=== PATIENT | female | born 1985 | race Two or more races ===

== ENCOUNTER 2016-10-12 06:08 | Emergency (ER) | payer MEDICAID, OTHER ==
[~2016-10-12] VITALS: Ht 162.6 cm; Wt 117.9 kg
[2016-10-12] MEDS ORDERED: NKM (06:17)
[2016-10-12] MEDS ORDERED: Cephalexin 500mg cap ORAL ONE (06:30)
[2016-10-12] MEDS ORDERED: KEFLEX500 MG ORAL (06:31)
--- NOTE | 2016-10-12 06:31 | Emergency Room Report ---
History of Present Illness General Chief Complaint: Female Urogenital Problems Source: Patient Present Illness HPI Is a 31-year-old female who is 8 para 4, approximately 7 weeks . She presents with chief complaint of dysuria, frequency and urgency. No hematuria. No vaginal bleeding. Onset for a week now. Also has some mild left lower back pain. She made an appointment with her but it won't be until few days now. Denies any other complaint. Allergies: Coded Allergies: No Known Allergies (Verified , 10/12/16) Patient History Past Medical History: see triage record, old chart reviewed Past Surgical History: none Pertinent Family History: none Social History: Reports: smoking Last Menstrual Period: Aug 20 Now: Yes : 8 Para: 4 Immunizations: other Reviewed Nursing Documentation: PMH: Agreed, PSxH: Agreed Nursing Documentation-PMH Past Medical History: No History, Except For Hx Gastrointestinal Problems: Yes - Pancreatitis, gallstones Review of Systems Eye: Denies: blurred vision, eye pain ENT: Denies: ear pain, nose congestion, throat swelling Respiratory: Denies: cough, shortness of breath Cardiovascular: Denies: chest pain, palpitations Gastrointestinal: Denies: abdominal pain, diarrhea, nausea, vomiting Genitourinary: Reports: dysuria, frequency, urgency, Denies: vag bleed/dc Musculoskeletal: Denies: back pain, joint pain Skin: Denies: rash Neurological: Denies: headache, numbness Endocrine: Denies: increased thirst, increased urine Hematologic/Lymphatic: Denies: easy bruising All Other Systems: negative except mentioned in HPI Physical Exam Vital Signs Date Time Temp Pulse Resp B/P Pulse Ox O2 Delivery O2 Flow Rate FiO2 10/12/16 06:12 97.9 83 16 133/81 98 Room Air vitals normal Sp02 EP Interpretation: reviewed, normal General Appearance: well appearing, no apparent distress, alert Head: normocephalic, atraumatic Eyes: bilateral eye EOMI, bilateral eye PERRL ENT: hearing grossly normal, normal pharynx Neck: full range of motion, supple, no meningismus Respiratory: chest non-tender, lungs clear, normal breath sounds Cardiovascular #1: regular rate, rhythm, no murmur Gastrointestinal: normal bowel sounds, non tender, no mass, no organomegaly, no bruit, non-distended Musculoskeletal: back normal, gait/station normal, normal range of motion Psychiatric: mood/affect normal Skin: warm/dry Medical Decision Making Diagnostic Impression: Primary Impression: UTI (urinary tract infection) Qualified Codes: N30.00 - Acute cystitis without hematuria Additional Impression: test positive for normal first in first trimester ER Course Patient with UTI and . She has no pain no vaginal bleeding. I see no need to do an emergency ultrasound. We'll discharge home with antibiotics. Last Vital Signs Date Time Temp Pulse Resp B/P Pulse Ox O2 Delivery O2 Flow Rate FiO2 10/12/16 06:12 97.9 83 16 133/81 98 Room Air Status: improved Disposition: HOME, SELF-CARE Condition: Stable Scripts Cephalexin* (KEFLEX*) 500 Mg Capsule 500 MG ORAL TID, #21 CAP 0 Refills Prov: LIBBY LOVETT M.D. 10/12/16 Patient Instructions: Urinary Tract Infection Additional Instructions: Followup with your Dr. in 2-3 days. Return if symptom worsen. LIBBY LOVETT M.D. Oct 12, 2016 06:31
[2016-10-12 06:37] VITALS: BP 133/81
[2016-10-12 07:03] LABS: APPEARANCE,URINE CLEAR; KETONES,URINE NEGATIVE (NEGATIVE); LEUKOCYTE ESTERASE ,URINE 3+ (NEGATIVE); NITRITE,URINE POSITIVE (NEGATIVE); PH,URINE 6 (4.5-8.0); PROTEIN,URINE 2+ (NEGATIVE); UROBILINOGEN,URINE NORMAL MG/DL (0.0-1.0)
[2016-10-12 08:17] LABS: BACTERIA,URINE MANY /HPF; SQUAMOUS EPITHELIAL CELL,UR MODERATE /LPF (NONE/OCC); WBC,URINE 60-80 /HPF (0 - 2)
== END 2016-10-12 06:38 | disposition home or self-care (01) ==
LOC: EMR 06:25
DX: O23.41 Unspecified infection of urinary tract in pregnancy, first trimester (principal); Z3A.01 Less than 8 weeks gestation of pregnancy
CPT/HCPCS: 81003; 81025; 87086; 87181; 99283

== ENCOUNTER 2016-12-08 01:40 | Emergency (ER) | payer MEDICAID ==
[~2016-12-08] VITALS: Ht 162.6 cm; Wt 119.3 kg
[~2016-12-08 01:40] MED LIST: KEFLEX500 MG ORAL; NKM
[2016-12-08] MEDS ORDERED: PRENATA CHEWAB1 EACH PO (01:48)
[2016-12-08 02:03] VITALS: BP 127/87
[2016-12-08] MEDS ORDERED: Morphine Sulfate 4mg/ml Inj IVP ONE (02:45)
[2016-12-08 02:50] LABS: APPEARANCE,URINE CLEAR; KETONES,URINE 3+ (NEGATIVE); LEUKOCYTE ESTERASE ,URINE 2+ (NEGATIVE); NITRITE,URINE NEGATIVE (NEGATIVE); PH,URINE 5 (4.5-8.0); PROTEIN,URINE 2+ (NEGATIVE); UROBILINOGEN,URINE NORMAL MG/DL (0.0-1.0)
--- NOTE | 2016-12-08 02:51 | Emergency Room Report ---
History of Present Illness General Chief Complaint: Abdominal Pain Source: Patient Present Illness HPI Is a 31-year-old female who is 9, para 4, A 4, 20 weeks . She also has a history of gallstone. Never any problem with gallstone attack with prior . She only get frequent attack. She presents with chief complaint of epigastric pain going to her back. Onset for last few hours. Has nausea vomiting. Denies any dysuria frequency. Denies any diarrhea. Pain is 8 /10. Does not have any medicine for this. She had an ultrasound in [facility] for her ready. She scheduled for OB followup next week. No vaginal bleeding. Allergies: Coded Allergies: No Known Allergies (Verified , 12/08/16) Patient History Past Medical History: see triage record, old chart reviewed Past Surgical History: none Pertinent Family History: none Social History: Denies: smoking Last Menstrual Period: 5 months ago Now: Yes - 5 months : 9 Para: 4 Immunizations: other Reviewed Nursing Documentation: PMH: Agreed, PSxH: Agreed Nursing Documentation-PMH Past Medical History: No History, Except For Hx Gastrointestinal Problems: Yes - Pancreatitis, gallstones Review of Systems Eye: Denies: blurred vision, eye pain ENT: Denies: ear pain, nose congestion, throat swelling Respiratory: Denies: cough, shortness of breath Cardiovascular: Denies: chest pain, palpitations Gastrointestinal: Reports: abdominal pain, nausea, vomiting, Denies: diarrhea Musculoskeletal: Denies: back pain, joint pain Skin: Denies: rash Neurological: Denies: headache, numbness Endocrine: Denies: increased thirst, increased urine Hematologic/Lymphatic: Denies: easy bruising All Other Systems: negative except mentioned in HPI Physical Exam Vital Signs Date Time Temp Pulse Resp B/P Pulse Ox O2 Delivery O2 Flow Rate FiO2 12/08/16 01:42 98.1 116 16 138/95 97 Room Air vital with tachycardia Sp02 EP Interpretation: reviewed, normal General Appearance: well appearing, no apparent distress, alert, obese Head: normocephalic, atraumatic Eyes: bilateral eye EOMI, bilateral eye PERRL ENT: hearing grossly normal, normal pharynx Neck: full range of motion, supple, no meningismus Respiratory: chest non-tender, lungs clear, normal breath sounds Cardiovascular #1: regular rate, rhythm, no murmur Gastrointestinal: normal bowel sounds, no mass, no organomegaly, no bruit, non- distended, tenderness - Epigastric pain. gravid Musculoskeletal: back normal, gait/station normal, normal range of motion Psychiatric: mood/affect normal Skin: warm/dry Medical Decision Making Diagnostic Impression: Primary Impression: Abdominal pain Qualified Codes: R10.13 - Epigastric pain Additional Impressions: Cholelithiasis Qualified Codes: K80.20 - Calculus of gallbladder without cholecystitis without obstruction UTI (urinary tract infection) Qualified Codes: N30.00 - Acute cystitis without hematuria ER Course Patient presents with abdominal pain. This may be secondary UTI and biliary colic. I did a bedside ultrasound and she's negative for Ingram sign. She does have a large gallstone but no evidence of obstruction. Gallbladder was normal. I also see a live IUP with good movement. Heart rate of 130s. Pain is well-controlled now. We'll discharge home. Last Vital Signs Date Time Temp Pulse Resp B/P Pulse Ox O2 Delivery O2 Flow Rate FiO2 12/08/16 02:03 109 21 127/87 97 Room Air 12/08/16 01:42 98.1 Status: improved Disposition: HOME, SELF-CARE Condition: Stable Scripts Ondansetron (Zofran) 4 Mg Tablet 4 MG ORAL Q6H Y for Nausea & Vomiting, #20 TAB 0 Refills Prov: LIBBY LOVETT M.D. 12/08/16 Nitrofurantoin Monohyd/M-Cryst (Nitrofurantoin [place]-Mcr 100 mg) 100 Mg Capsule 100 MG ORAL Q12H, #14 CAP Prov: LIBBY LOVETT M.D. 12/08/16 Hydrocodone/Acetaminophen 5-325* (HYDROCODONE/ACETAMINOPHEN 5-325*) 1 Each Tablet 1 TAB ORAL Q6H Y for For Pain, #15 TAB 0 Refills Prov: LIBBY LOVETT M.D. 12/08/16 Referrals: NOT CHOSEN [facility]/,REFERRING (PCP) Additional Instructions: Followup with your DrRosa Elena in 2-3 days. Keep the appointment to ADMINISTRATIVE SUPPORT COORDINATOR. Return if symptom worsen. LIBBY LOVETT M.D. December 08, 2016 02:51
[2016-12-08 02:56] LABS: BASOPHILS % (AUTO) 0.1 % (0.0-2.0); EOSINOPHILS % (AUTO) 0.2 % (0.0-3.0); LYMPHOCYTES % (AUTO) 11.5 % (20.0-45.0); MEAN CORPUSCULAR HEMOGLOBIN 30.1 PG (27.0-31.0); MEAN CORPUSCULAR HGB CONC 33.5 G/DL (32.0-36.0); MEAN CORPUSCULAR VOLUME 90 FL (80-99); MEAN PLATELET VOLUME 7.4 FL (6.5-10.1); MONOCYTES % (AUTO) 4.5 % (1.0-10.0); NEUTROPHILS % (AUTO) 83.7 % (45.0-75.0); PLATELET COUNT 255 K/UL (150-450); RED BLOOD COUNT 4.45 M/UL (4.20-5.40); RED CELL DISTRIBUTION WIDTH 12.5 % (11.6-14.8); WHITE BLOOD COUNT 12.7 K/UL (4.8-10.8)
[2016-12-08 02:59] LABS: BACTERIA,URINE MODERATE /HPF; SQUAMOUS EPITHELIAL CELL,UR MANY /LPF (NONE/OCC); WBC,URINE 15-20 /HPF (0 - 2)
[2016-12-08] MEDS ORDERED: cefTRIAXone 1 GM in NS 55 ML IVPB ONE (03:15)
[2016-12-08 03:32] LABS: ALANINE AMINOTRANSFERASE 14 U/L (3-33); ALBUMIN/GLOBULIN RATIO 0.9 (1.0-2.7); ANION GAP 16 (5-15); ASPARTATE AMINO TRANSFERASE 22 U/L (5-40); CALCIUM 8.5 mg/dL (8.6-10.2); CARBON DIOXIDE 22 mEQ/L (20-30); CHLORIDE 100 mEQ/L (98-107); CREATININE 0.6 mg/dL (0.5-0.9); GLOMERULAR FILTRATION RATE > 60 mL/min (>60); HEMOLYSIS 0; POTASSIUM 3.7 mEQ/L (3.4-4.9); SODIUM 138 mEQ/L (135-145); TOTAL PROTEIN 7.1 g/dL (6.6-8.7)
[2016-12-08] MEDS ORDERED: HYDROCODON-ACE1 EA15 ORAL (03:52)
[2016-12-08] MEDS ORDERED: MACROBID100 MG ORAL (03:52)
[2016-12-08] MEDS ORDERED: ZOFRAN4 MG ORAL (03:52)
[2016-12-08 04:00] VITALS: BP 132/64
[2016-12-08 04:14] LABS: LIPASE 744 U/L (< 60)
== END 2016-12-08 04:05 | disposition home or self-care (01) ==
LOC: EMR 02:13
DX: K80.20 Calculus of gallbladder without cholecystitis without obstruction (principal)
CPT/HCPCS: 36415; 80053; 81003; 83690; 85025; 87086; 96360; 96374; 96375; 99284; J0696; J2270; J2405